=== PATIENT | female | born 1995 | race African-American/Black ===

== ENCOUNTER → 2019-02-17 | Outpatient (CLI) | payer SELFPAY ==
--- NOTE | 2019-02-17 16:07 | RADIOLOGY REPORT (SQ) ---
EXAM DESCRIPTION: U/S [id number] TRNABD 1GES W/ODOP COMPLETED DATE/TIME: 02/17/2019 7:56 am REASON FOR STUDY: ENCTR FOR SUPERVISION OF OTHER NORMAL , 1ST TRIMESTER (Z34.81) Z34.81 EN COUNTER FOR SUPRVSN OF NORMAL , FIRST TRIM COMPARISON: None. TECHNIQUE: Transabdominal static and realtime grayscale images acquired of the pelvis. Additional se lected spectral and color Doppler images recorded. All images stored on PACs. [facility]: Not available. CLINICAL DATES: RAYA 09/08/2019, EGA 11 weeks 0 days, LMP 12/02/2018 LIMITATIONS: None. FINDINGS: FETUS: Single Living intrauterine . ULTRASOUND EGA: 11 weeks 3 days ULTRASOUND RAYA: 09/05/2019 EFW: Not applicable less than 20 weeks. CRL: 4.7 cm FHR: 149 beats per minute. SURVEY: No visualized anomalies. AMNIOTIC FLUID: Adequate amount. PLACENTA: Not yet developed due to early gestation. SUBCHORIONIC BLEED: No. SIZE OF BLEED: Not applicable. UTERUS: No masses. No anomalies. CERVICAL LENGTH: 2.4 cm Closed. RIGHT ADNEXA: Not visualized No adnexal free fluid. No adnexal masses. LEFT ADNEXA: Normal ovary with normal vascular flow measuring 2.2 x 1.9 x 2.3 cm. No adnexal free fluid. No adnexal masses. FREE FLUID: None. OTHER: No other significant finding. IMPRESSION: Living intrauterine with estimated ultrasound gestational age of 11 weeks 3 da ys. Cervical length measured at 2.4 cm. Trimester of : First trimester - 0 to 13 weeks. TECHNICAL DOCUMENTATION: JOB ID: [id number]- All Rights Reserved rev-08/09 Reading location - IP/workstation name: [employer], [facility]-
== END ==
LOC: RAD 07:13
PROVIDERS: ATTEND Nurse Practitioner Family
DX: Z34.81 Encounter for supervision of other normal pregnancy, first trimester (principal)
CPT/HCPCS: 76801

== ENCOUNTER 2019-03-04 01:02 | Emergency (ER) | payer SELFPAY ==
[2019-03-04 01:58] LABS: APPEARANCE,URINE SLIGHTLY-CLOUDY; BILIRUBIN,URINE NEGATIVE (NEGATIVE); COLOR,URINE YELLOW; GLUCOSE, URINE NEGATIVE (NEGATIVE); KETONES,URINE NEGATIVE (NEGATIVE); LEUKOCYTE ESTERASE,URINE NEGATIVE (NEGATIVE); NITRITE,URINE NEGATIVE (NEGATIVE); PROTEIN,URINE NEGATIVE (NEGATIVE); URINE SPECIFIC GRAVITY 1.023; UROBILINOGEN,URINE NEGATIVE mg/dL (<2.0)
[2019-03-04 01:59] LABS: ABSOLUTE EOSINOPHILS # (AUTO) 0.1 10^3/uL (0.0-0.6); ABSOLUTE LYMPHOCYTES (AUTO) 2.2 10^3/uL (0.5-4.7); ABSOLUTE MONOCYTES (AUTO) 0.6 10^3/uL (0.1-1.4); ABSOLUTE NEUT (AUTO) 4.2 10^3/uL (1.7-8.2); BASOPHILS % (AUTO) 0.5 % (0-2); HEMATOCRIT 33.9 % (36.0-47.0); HEMOGLOBIN 11.2 g/dL (12.0-15.5); LYMPHOCYTES % (AUTO) 30.6 % (13-45); MEAN CORPUSCULAR HEMOGLOBIN 27.3 pg (27.0-33.4); MEAN CORPUSCULAR HGB CONC 33.1 g/dL (32.0-36.0); MEAN CORPUSCULAR VOLUME 83 fl (80-97); MONOCYTES % (AUTO) 8.7 % (3-13); PLATELET COUNT 261 10^3/uL (150-450); RED BLOOD COUNT 4.11 10^6/uL (3.72-5.28); RED CELL DISTRIBUTION WIDTH 15.1 % (11.5-14.0); SEGMENTED NEUTROPHILS % (AUTO) 58.2 % (42-78); TOTAL CELLS COUNTED % (AUTO) 100 %; WHITE BLOOD COUNT 7.2 10^3/uL (4.0-10.5)
[2019-03-04 02:05] LABS: ALBUMIN 3.5 g/dL (3.5-5.0); ALKALINE PHOSPHATASE 38 U/L (38-126); ANION GAP 8 (5-19); ASPARTATE AMINO TRANSFERASE 19 U/L (14-36); BILIRUBIN,TOTAL 0.4 mg/dL (0.2-1.3); BLOOD UREA NITROGEN 11 mg/dL (7-20); CALCIUM 9.2 mg/dL (8.4-10.2); CARBON DIOXIDE 25 mmol/L (22-30); CHLORIDE 105 mmol/L (98-107); GLUCOSE 76 mg/dL (75-110); TOTAL PROTEIN 6.7 g/dL (6.3-8.2)
[2019-03-04] MEDS ORDERED: ACETAMINOPHEN 325 MG TABLET PO ONE (04:37)
--- NOTE | 2019-03-04 04:41 | ER Document Report ---
ED General - General Chief Complaint: Abdominal Pain Stated Complaint: ABDOMINAL PAIN/ Time Seen by Provider: 03/04/19 04:07 TRAVEL OUTSIDE OF THE [place] IN LAST 30 DAYS: No - HPI Notes: Patient is a G5, P1 at approximately 13 weeks gestation who presents emergency department for evaluation of abdominal pain. She states that about 5 PM she developed cramping abdominal pain. She had one episode of diarrhea. She states that her symptoms persisted, this dull achy pain that she rates a 3 out of 5, so she presents to the ED for further evaluation. She denies any fevers or chills. No nausea or vomiting. No urinary symptoms. She denies any vaginal bleeding or abnormal discharge. She is Kirt had an ultrasound which is found to be normal around 2 weeks ago. She does states she became concerned when her pain was persistent, so she presents to the ED for further evaluation. She has not taken any medications to feel better. - Related Data Allergies/Adverse Reactions: No Known Allergies Allergy (Verified 09/05/13 12:34) Home Medications: vitamin Past Medical History - General Information source: Patient - Social History Smoking Status: Never Smoker Family History: Reviewed & Not Pertinent Patient has suicidal ideation: No Patient has homicidal ideation: No Review of Systems - Review of Systems Constitutional: No symptoms reported EENT: No symptoms reported Cardiovascular: No symptoms reported Respiratory: No symptoms reported Gastrointestinal: See HPI Genitourinary: No symptoms reported Female Genitourinary: See HPI Musculoskeletal: No symptoms reported Skin: No symptoms reported Neurological/Psychological: No symptoms reported Physical Exam - Vital signs Vitals: Temp Pulse Resp BP Pulse Ox 97.9 F 61 18 113/76 100 03/04/19 01:03 03/04/19 01:03 03/04/19 01:03 03/04/19 01:03 03/04/19 01:03 - Notes Notes: Vital signs reviewed, please refer to chart. Head is normocephalic, atraumatic. Pupils equal round, reactive to light. Neck is supple without meningismus. Heart is regular rate and rhythm. Lungs are clear to auscultation bilaterally. Abdomen is gravid, minimally tender in the left lower quadrant without rebound or guarding, normoactive bowel sounds throughout. Extremities without cyanosis, clubbing. Posterior calves are nontender. Peripheral pulses are equal. Skin is warm and dry. Patient is awake, alert, neurological exam is nonfocal. Course - Re-evaluation Re-evalutation: 03/04/19 04:40 Patient presents to the emergency department for evaluation. She complains of abdominal pain. Her pain is left-sided, she is minimal tenderness. Her vitals are unremarkable. Laboratory investigations failed to reveal any significant abnormality. She does not have large blood in her urine. She already had a formal ultrasound here just 2 weeks ago. At this point, I will go ahead and place the ultrasound probe on her abdomen. I explained to her that I am not a radiologist nor my cytotechnologist/histotechnologist. This is simply to verify intrauterine , movement, cardiac activity. She is given Tylenol for her pain. At this point patient is amenable to this plan. 03/04/19 04:57 Bedside ultrasound performed by this provider. It verified a single intrauterine with good cardiac activity, heart rate of 148. Good movement. Again it was reiterated to the patient that no other parameters were evaluated other than presence of appropriate cardiac activity and motion. She voiced understanding. At this point, I do not have a clear etiology as to the patient's pain, but I will have her follow-up with OB. She is amenable to this plan, and will return to the ED with worsening. - Vital Signs Vital signs: Temp Pulse Resp BP Pulse Ox 97.9 F 61 18 113/76 100 03/04/19 01:03 03/04/19 01:03 03/04/19 01:03 03/04/19 01:03 03/04/19 01:03 - Laboratory Result Diagrams: 03/04/19 01:30 03/04/19 01:30 Laboratory results interpreted by me: 03/04/19 03/04/19 01:30 01:30 Hgb 11.2 L Hct 33.9 L RDW 15.1 H Beta HCG, Quant 55482.00 H Discharge - Discharge Clinical Impression: Left lower quadrant abdominal pain affecting Condition: Stable Disposition: HOME, SELF-CARE Instructions: Abdominal Pain ([facility]), Pelvic Pain in ([facility]) Additional Instructions: No clear cause was found for your abdominal pain today. Laboratory investigations were normal, and informal ultrasound revealed normal cardiac activity. Please follow-up with the health department, or our on-call OB, listed below. Return to the ED with worsening or new concerning symptoms of any sort. Referrals: NATE HARRISON MD [ACTIVE PROVISIONAL STAFF] - Follow up as needed
[2019-03-04 05:03] VITALS: BP 110/72
== END 2019-03-04 05:01 | disposition home or self-care (01) ==
LOC: ER 01:02
DX: O26.91 Pregnancy related conditions, unspecified, first trimester (principal); R10.9 Unspecified abdominal pain; Z3A.13 13 weeks gestation of pregnancy
CPT/HCPCS: 36415; 80053; 81001; 83690; 84702; 85025; 99284

== ENCOUNTER 2019-03-13 17:03 | Emergency (ER) | payer SELFPAY ==
[2019-03-13] MEDS ORDERED: ACETAMINOPHEN 325 MG TABLET PO ONE (17:30)
--- NOTE | 2019-03-13 17:31 | ER Document Report ---
ED Medical Screen (RME) - General Chief Complaint: Abdominal Pain Stated Complaint: ABDOMINAL PAIN Time Seen by Provider: 03/13/19 17:27 Mode of Arrival: Ambulatory Information source: Patient Notes: Patient is 15 weeks G5, P1. Patient reports lower pelvic pain that started today. Patient denies any vaginal bleeding or discharge. Patient denies any urinary symptoms. Patient complains of body aches and headaches but primarily lower pelvic pain. I have greeted and performed a rapid initial assessment of this patient. A comprehensive ED assessment and evaluation of the patient, analysis of test results and completion of the medical decision making process will be conducted by additional ED providers. TRAVEL OUTSIDE OF THE [place] IN LAST 30 DAYS: No - Related Data Allergies/Adverse Reactions: No Known Allergies Allergy (Verified 09/05/13 12:34) Past Medical History - Social History Frequency of alcohol use: None Drug Abuse: None Physical Exam - Vital signs Vitals: Temp Pulse Resp BP Pulse Ox 98.1 F 91 18 113/65 100 03/13/19 17:10 03/13/19 17:10 03/13/19 17:10 03/13/19 17:10 03/13/19 17:10 - Abdominal Tenderness: Tender - Lower pelvic Course - Vital Signs Vital signs: Temp Pulse Resp BP Pulse Ox 98.1 F 91 18 113/65 100 03/13/19 17:12 03/13/19 17:12 03/13/19 17:12 03/13/19 17:12 03/13/19 17:12
[2019-03-13 18:13] LABS: ABSOLUTE EOSINOPHILS # (AUTO) 0.1 10^3/uL (0.0-0.6); ABSOLUTE LYMPHOCYTES (AUTO) 2.1 10^3/uL (0.5-4.7); ABSOLUTE MONOCYTES (AUTO) 0.6 10^3/uL (0.1-1.4); BASOPHILS % (AUTO) 0.4 % (0-2); EOSINOPHILS % (AUTO) 1.5 % (0-6); HEMOGLOBIN 11.2 g/dL (12.0-15.5); LYMPHOCYTES % (AUTO) 30.4 % (13-45); MEAN CORPUSCULAR HEMOGLOBIN 27.4 pg (27.0-33.4); MEAN CORPUSCULAR HGB CONC 33.1 g/dL (32.0-36.0); MEAN CORPUSCULAR VOLUME 83 fl (80-97); PLATELET COUNT 246 10^3/uL (150-450); RED CELL DISTRIBUTION WIDTH 14.9 % (11.5-14.0); SEGMENTED NEUTROPHILS % (AUTO) 58.7 % (42-78); TOTAL CELLS COUNTED % (AUTO) 100 %; WHITE BLOOD COUNT 6.8 10^3/uL (4.0-10.5)
--- NOTE | 2019-03-13 18:19 | RADIOLOGY REPORT (SQ) ---
EXAM DESCRIPTION: U/S OB 14+ TRNABD 1GES W/O DOP COMPLETED DATE/TIME: 03/13/2019 6:06 pm REASON FOR STUDY: pelvic pain COMPARISON: 02/17/2019 TECHNIQUE: Static and Dynamic grayscale imaging performed of gravid uterus using transabdominal appr oach. Additional selected color Doppler and spectral images recorded. All stored on PACS. LIMITATIONS: None. FINDINGS: FETUSES SEEN:1 EGA: 15 weeks, 0 days Calculated using BPD,FL,HC,AC documented on images. No discrepancy with clinic al dates. RAYA: 09/04/2019 JAVI: Adequate PLACENTA: Anterior PRESENTATION: Cephalic. ANATOMY: HEART RATE: 149 beats per minute. FOUR CHAMBER HEART: Visualized. evaluation limited to biometry. MATERNAL ADNEXA: Maternal ovaries not visualized. CERVICAL LENGTH: 3 cm Closed. OTHER: No other significant finding. IMPRESSION: LIVING INTRAUTERINE . ESTIMATED GESTATIONAL AGE 15 weeks, 0 days evaluation limited to biometrics. Trimester of : Second trimester - 13 weeks 1 day to 27 weeks 6 days. TECHNICAL DOCUMENTATION: JOB ID: [id number]- All Rights Reserved Reading location - IP/workstation name: [email or web address]
[2019-03-13 19:31] LABS: APPEARANCE,URINE CLEAR; BILIRUBIN,URINE NEGATIVE (NEGATIVE); COLOR,URINE YELLOW; GLUCOSE, URINE NEGATIVE (NEGATIVE); KETONES,URINE TRACE mg/dL (NEGATIVE); LEUKOCYTE ESTERASE,URINE NEGATIVE (NEGATIVE); NITRITE,URINE NEGATIVE (NEGATIVE); PROTEIN,URINE NEGATIVE (NEGATIVE); URINE SPECIFIC GRAVITY 1.013; UROBILINOGEN,URINE NEGATIVE mg/dL (<2.0)
[2019-03-13 20:56] LABS: CHLAM PCR NOT DETECTED (NOT DETECT)
--- NOTE | 2019-03-13 21:16 | ER Document Report ---
ED GI/ - General Chief Complaint: Abdominal Pain Stated Complaint: ABDOMINAL PAIN Time Seen by Provider: 03/13/19 17:27 [facility] [Primary Care Provider[facility] - Follow up as needed Mode of Arrival: Ambulatory Notes: Patient is a 23-year-old female, at 14-15 weeks gestation, that comes emergency department for chief complaint of intermittent lower abdominal cramping in the pelvic area on both sides. She denies flank pain, dysuria, vaginal discharge, vaginal bleeding, fever/chills, nausea/vomiting. She denies injury. She is taking vitamins. She has been to the health department a few weeks ago and is waiting for follow-up with [facility]. She denies medical history otherwise. TRAVEL OUTSIDE OF THE [place] IN LAST 30 DAYS: No - HPI heart tones (bpm): 140 - Related Data Allergies/Adverse Reactions: No Known Allergies Allergy (Verified 09/05/13 12:34) Past Medical History - General Information source: Patient - Social History Smoking Status: Never Smoker Frequency of alcohol use: None Drug Abuse: None Lives with: Family Family History: Reviewed & Not Pertinent Patient has suicidal ideation: No Patient has homicidal ideation: No Review of Systems - Review of Systems Constitutional: No symptoms reported EENT: No symptoms reported Cardiovascular: No symptoms reported Respiratory: No symptoms reported Gastrointestinal: See HPI Genitourinary: No symptoms reported Female Genitourinary: See HPI Musculoskeletal: No symptoms reported Skin: No symptoms reported Hematologic/Lymphatic: No symptoms reported Neurological/Psychological: No symptoms reported Physical Exam - Vital signs Vitals: Temp Pulse Resp BP Pulse Ox 98.1 F 91 18 113/65 100 03/13/19 17:10 03/13/19 17:10 03/13/19 17:10 03/13/19 17:10 03/13/19 17:10 - Notes Notes: GENERAL: Alert, interacts well. No acute distress. HEAD: Normocephalic, atraumatic. EYES: Pupils equal, round, and reactive to light. Extraocular movements intact. ENT: Oral mucosa moist, tongue midline. Oropharynx unremarkable. Airway patent. NECK: Full range of motion. Supple. Trachea midline. LUNGS: Clear to auscultation bilaterally, no wheezes, rales, or rhonchi. No respiratory distress. HEART: Regular rate and rhythm. No murmur ABDOMEN: Soft, non-tender. Non-distended. Bowel sounds present in all 4 quadrants. GENITOURINARY: External exam unremarkable, no bleeding noted, minimal discharge noted which is whitish, no cervical motion tenderness, no lesions. Closed cervix. EXTREMITIES: Moves all 4 extremities spontaneously. No edema, normal radial and dorsalis pedis pulses bilaterally. No cyanosis. BACK: no cervical, thoracic, lumbar midline tenderness. No saddle anesthesia, normal distal neurovascular exam. Moves all extremities in full range of motion. NEUROLOGICAL: Alert and oriented x3. Normal speech. Cranial nerves II through XII grossly intact. PSYCH: Normal affect, normal mood. SKIN: Warm, dry, normal turgor. No rashes or lesions noted. Course - Re-evaluation Re-evalutation: Patient is well-appearing, abdomen is soft and benign. Work-up reassuring with intrauterine without obvious concerning findings on ultrasound. Remaining work-up unremarkable. Pelvic exam showing very small amount of vaginal discharge, no cervical motion tenderness, unremarkable otherwise, no current bleeding. I discussed with patient, there does appear to be some bacterial vaginosis on wet mount, wet mount and work-up otherwise unremarkable, decision was made to not treat her because of her first trimester status, borderline bacterial vaginosis, and potential side effects of Flagyl. Patient does not appear to be significantly symptomatic from the BV either although I do not have a clear cause of her abdominal pain. Pain is infrequent and patient states it is not severe when it occurs, she does not currently have the pain. Patient will be discharged with recommendations, follow-up, and return precautions. Discussed with patient and mother. They state appreciation and agreement. - Vital Signs Vital signs: Temp Pulse Resp BP Pulse Ox 98.2 F 66 16 112/60 100 03/13/19 23:31 03/13/19 23:31 03/13/19 23:31 03/13/19 23:31 03/13/19 23:31 - Laboratory Result Diagrams: 03/13/19 17:45 Laboratory results interpreted by me: 03/13/19 03/13/19 17:45 19:10 Hgb 11.2 L Hct 34.0 L RDW 14.9 H Urine Ketones TRACE H Discharge - Discharge Clinical Impression: Abdominal cramping affecting Condition: Stable Disposition: HOME, SELF-CARE Additional Instructions: Your work-up is reassuring with a normal ultrasound showing a living in the uterus with no obvious abnormality. You have borderline bacterial vaginosis on examination, we have decided not to treat this based on your evaluation and current . Consider [id number] probiotics, follow- up with [facility] for additional management. Take Tylenol for pain, stay hydrated. Return if you worsen including vomiting, fever, severe worsening pain, bleeding, or any other concerning or worsening symptoms. Forms: Return to Work [facility] - Follow up as needed
[2019-03-13 22:21] LABS: BACTERIA (WET MOUNT) 4+ BACTERIA SEEN; EPITHELIALS (WET MOUNT) 3+ EPITHELIALS SEEN; T.VAGINALIS (WET MOUNT) NO TRICHOMONAS SEEN; WBCS (WET MOUNT) 1+ WBCS SEEN; YEAST (WET MOUNT) NO YEAST SEEN
[2019-03-13 23:32] VITALS: BP 112/60
== END 2019-03-13 22:51 | disposition home or self-care (01) ==
LOC: ER 17:03
DX: O26.891 Other specified pregnancy related conditions, first trimester (principal); R10.2 Pelvic and perineal pain; N89.8 Other specified noninflammatory disorders of vagina; Z3A.00 Weeks of gestation of pregnancy not specified
CPT/HCPCS: 36415; 76805; 81001; 85025; 86900; 86901; 87210; 87491; 87591; 99284

== ENCOUNTER 2019-06-27 22:57 | Outpatient (CLI) | payer MEDICAID ==
[2019-06-27] MEDS ORDERED: RINGERS SOLUTION,LACTATED 1,000 ML IV ONE (23:17)
[2019-06-27] MEDS ORDERED: RINGERS SOLUTION,LACTATED 1,000 ML IV PRN (23:17)
[2019-06-27] MEDS ORDERED: HYDROXYZINE PAMOATE 50 MG CAPSULE PO ONE (23:18)
[2019-06-27] MEDS ORDERED: HYDROXYZINE PAMOATE 50 MG CAPSULE ONE (23:27)
[2019-06-27 23:52] LABS: ABSOLUTE EOSINOPHILS # (AUTO) 0.1 10^3/uL (0.0-0.6); ABSOLUTE LYMPHOCYTES (AUTO) 1.9 10^3/uL (0.5-4.7); ABSOLUTE MONOCYTES (AUTO) 0.8 10^3/uL (0.1-1.4); ABSOLUTE NEUT (AUTO) 4.7 10^3/uL (1.7-8.2); BASOPHILS % (AUTO) 0.4 % (0-2); EOSINOPHILS % (AUTO) 1.1 % (0-6); HEMOGLOBIN 10.6 g/dL (12.0-15.5); LYMPHOCYTES % (AUTO) 25.9 % (13-45); MEAN CORPUSCULAR HEMOGLOBIN 28.4 pg (27.0-33.4); MEAN CORPUSCULAR HGB CONC 34.1 g/dL (32.0-36.0); MEAN CORPUSCULAR VOLUME 83 fl (80-97); MONOCYTES % (AUTO) 10.3 % (3-13); PLATELET COUNT 204 10^3/uL (150-450); RED BLOOD COUNT 3.73 10^6/uL (3.72-5.28); RED CELL DISTRIBUTION WIDTH 12.8 % (11.5-14.0); SEGMENTED NEUTROPHILS % (AUTO) 62.3 % (42-78); TOTAL CELLS COUNTED % (AUTO) 100 %; WHITE BLOOD COUNT 7.5 10^3/uL (4.0-10.5)
[2019-06-28 00:06] LABS: BACTERIA (WET MOUNT) 4+ BACTERIA SEEN; EPITHELIALS (WET MOUNT) 4+ EPITHELIALS SEEN; RBCS (WET MOUNT) NO RBCS SEEN; T.VAGINALIS (WET MOUNT) NO TRICHOMONAS SEEN; WBCS (WET MOUNT) 4+ WBCS SEEN; YEAST (WET MOUNT) NO YEAST SEEN
[2019-06-28 00:13] LABS: ALBUMIN 3.2 g/dL (3.5-5.0); ALKALINE PHOSPHATASE 95 U/L (38-126); ANION GAP 5 (5-19); ASPARTATE AMINO TRANSFERASE 22 U/L (14-36); BILIRUBIN,TOTAL 0.4 mg/dL (0.2-1.3); BLOOD UREA NITROGEN 2 mg/dL (7-20); CALCIUM 8.5 mg/dL (8.4-10.2); CARBON DIOXIDE 25 mmol/L (22-30); CHLORIDE 105 mmol/L (98-107); GLUCOSE 75 mg/dL (75-110); POTASSIUM 3.4 mmol/L (3.6-5.0); TOTAL PROTEIN 6.3 g/dL (6.3-8.2)
[2019-06-28 00:26] LABS: APPEARANCE,URINE CLEAR; BILIRUBIN,URINE NEGATIVE (NEGATIVE); COLOR,URINE YELLOW; GLUCOSE, URINE NEGATIVE (NEGATIVE); KETONES,URINE NEGATIVE (NEGATIVE); LEUKOCYTE ESTERASE,URINE NEGATIVE (NEGATIVE); NITRITE,URINE NEGATIVE (NEGATIVE); PROTEIN,URINE NEGATIVE (NEGATIVE); URINE SPECIFIC GRAVITY 1.005; UROBILINOGEN,URINE NEGATIVE mg/dL (<2.0)
[2019-06-28 00:34] LABS: URINE AMPHETAMINES SCREEN NEGATIVE; URINE BARBITURATES SCREEN NEGATIVE; URINE BENZODIAZEPINES SCREEN NEGATIVE; URINE COCAINE SCREEN NEGATIVE; URINE MARIJUANA (THC) SCREEN NEGATIVE; URINE METHADONE SCREEN NEGATIVE; URINE PHENCYCLIDINE SCREEN NEGATIVE
[2019-06-28] MEDS ORDERED: MORPHINE SULFATE 10 MG/ML INJ IV ONE (00:39)
[2019-06-28] MEDS ORDERED: MORPHINE SULFATE 10 MG/ML INJ ONE (00:42)
[2019-06-28 02:01] LABS: CHLAM PCR NOT DETECTED (NOT DETECT)
== END 2019-06-28 02:40 | disposition home or self-care (01) ==
LOC: LC 22:57
PROVIDERS: ATTEND Obstetrics & Gynecology
DX: O47.03 False labor before 37 completed weeks of gestation, third trimester (principal); Z3A.29 29 weeks gestation of pregnancy
CPT/HCPCS: 59899; 36415; 87210; 85025; 80053; 81001; 80307; 87491; 87591; J3490; J2270